=== PATIENT | female | born 1985 | race Hispanic/Latino ===

== ENCOUNTER 2024-05-28 19:26 | Emergency (ER) | payer BC ==
[~2024-05-28] VITALS: Ht 144.8 cm; Wt 69.9 kg
[2024-05-28 19:43] VITALS: TEMP 98.9
[2024-05-28 20:13] LABS: BASOPHILS # (AUTO) 0.1 (0.0-0.1); BASOPHILS % 0.5 % (0.0-1.0); EOSINOPHILS # (AUTO) 0.1 (0.0-0.4); EOSINOPHILS % 0.8 % (0.0-6.0); HEMATOCRIT 36.9 % (34.2-44.1); HEMOGLOBIN 12.2 g/dL (12.0-16.0); LYMPHOCYTES # (AUTO) 2.6 (1.0-3.2); LYMPHOCYTES % 23.7 % (18.0-39.1); MEAN CORPUSCULAR HGB CONC 33.1 g/dL (31-35); MEAN CORPUSCULAR VOLUME 90.9 fL (81-99); MONOCYTES # (AUTO) 0.6 (0.2-0.8); MONOCYTES % 5.4 % (4.4-11.3); NEUTROPHILS # (AUTO) 7.6 (2.1-6.9); NEUTROPHILS % 69.2 % (38.7-80.0); PLATELET COUNT 382 x10e3/uL (140-360); RED BLOOD COUNT 4.06 x10e6/uL (3.6-5.1); RED CELL DISTRIBUTION WIDTH 13.1 % (11.7-14.4)
[2024-05-28] MEDS ORDERED: SODIUM CHLORIDE FLUSH 10 ML SYR IV PRN (20:15)
[2024-05-28 20:27] LABS: ALBUMIN 4.1 g/dL (3.5-5.0); ALBUMIN/GLOBULIN RATIO 1.2 (0.8-2.0); ANION GAP 14.8 mmol/L (8-16); BILIRUBIN,TOTAL 0.3 mg/dL (0.2-1.2); CALCIUM 9.1 mg/dL (8.4-10.2); CREATININE, SERUM 0.76 mg/dL (0.57-1.11); POTASSIUM 3.8 mmol/L (3.5-5.1); TOTAL PROTEIN 7.5 g/dL (6.5-8.1)
[2024-05-28] MEDS: DICYCLOMINE HCL 20 MG/2 ML VIAL IM ONE (20:37)
[2024-05-28] MEDS: SODIUM CHLORIDE 0.9% 1000ML 1,000 ML IV ONE (20:37)
[2024-05-28] MEDS: ONDANSETRON HCL INJ 2MG/ML 2ML 2 MG/ML VIAL IV STA (20:38)
[2024-05-28] MEDS ORDERED: KETOROLAC TROMETHAMINE 30 MG/ML VIAL ONE (21:03)
[2024-05-28] MEDS: KETOROLAC TROMETHAMINE 30 MG/ML VIAL IV STA (21:03)
[2024-05-28 23:00] VITALS: PULSE 80; RESP 16
[2024-05-28] MEDS ORDERED: ONDANSETRON ODT4 MG SL (23:32)
[2024-05-28] MEDS ORDERED: DICYCLOMINE HCL20 MG PO (23:32)
[2024-05-28] MEDS ORDERED: PANTOPRAZOLE SO40 MG PO (23:32)
[2024-05-28 23:42] VITALS: BP 116/79; PULSE 80; RESP 16; O2SAT 100
== END 2024-05-28 23:51 | disposition home or self-care (01) ==
LOC: ER 19:35
DX: R10.11 Right upper quadrant pain (principal)
CPT/HCPCS: 36415; 76705; 80053; 81025; 83690; 85025; 99284; J0500; J1885; J2405; J2470; J7030